=== PATIENT | female | born 1960 | race Caucasian/White ===

== ENCOUNTER → 2017-04-26 | Outpatient (CLI) | payer BC ==
[~2017-04-26] MED LIST: NS 100 ML IV 100 ML IV ONE
[2017-04-26 08:54] LABS: CREATININE 0.81 mg/dL (0.55-1.02)
--- NOTE | 2017-04-26 10:56 | CT ---
HISTORY: Left lung mass Study: CT chest with contrast Comparison: None available Technique: Axial post-contrast images with coronal and sagittal reformats. Dose reduction procedures were use with MA/kv adjusted for body size. Findings: Examination of the mediastinum demonstrated no evidence for mediastinal masses, enlarged lymphadenop athy, or enlarged hilar adenopathy. Nonenlarged nodes are present. There is a pericardial effusion p resent maximum with 1.9 centimeters. No pleural effusions are identified. No chest wall or axillary abnormality is identified. Those portions of the upper abdominal organs visualized were within rafaela l limits. Examination of the lung saxena demonstrated no significant nodules, alveolar infiltrates, masses, peribronchial thickening, or bronchiectasis. There is some atelectasis within the lingula ab utting the fissure and best visualized on series 8 sagittal image 21 and series 5 axial image 42. De finite left lung mass is not identified. IMPRESSION: Pericardial effusion maximum width 1.9 centimeter Focus of subsegmental atelectasis as described in the lingula. Follow up is recommended until comple te resolution. Reported By:
== END ==
LOC: RAD 08:09
PROVIDERS: ATTEND Nurse Practitioner Family
DX: R93.8 Abnormal findings on diagnostic imaging of other specified body structures (principal); J45.901 Unspecified asthma with (acute) exacerbation
CPT/HCPCS: 36415; 71260; 82565; 84520; A4222